=== PATIENT | female | born 2000 | race Caucasian/White ===

== ENCOUNTER 2025-02-14 13:59 | Emergency (ER) | payer OTHER ==
[~2025-02-14] VITALS: Ht 170.2 cm; Wt 68.0 kg
[2025-02-14 14:01] VITALS: BP 135/80; PULSE 92; RESP 18; TEMP 98.3; O2SAT 98
== END 2025-02-14 18:48 | disposition left against medical advice (07) ==
LOC: ER 13:59
DX: R51.9 Headache, unspecified (principal); R42 Dizziness and giddiness; Z53.21 Procedure and treatment not carried out due to patient leaving prior to being seen by health care provider

== ENCOUNTER 2025-02-15 06:03 | Emergency (ER) | payer OTHER ==
[~2025-02-15] VITALS: Ht 170.2 cm; Wt 68.8 kg
[2025-02-15 06:06] VITALS: TEMP 97.2
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
[2025-02-15 07:49] VITALS: BP 128/67; PULSE 70; RESP 17; O2SAT 99
[2025-02-15 07:53] LABS: URINE HCG NEGATIVE (NEG)
== END 2025-02-15 07:51 | disposition home or self-care (01) ==
LOC: ER 06:03
DX: S29.012A Strain of muscle and tendon of back wall of thorax, initial encounter (principal); V89.2XXA Person injured in unspecified motor-vehicle accident, traffic, initial encounter; Y93.89 Activity, other specified; Y92.89 Other specified places as the place of occurrence of the external cause; Y99.8 Other external cause status
CPT/HCPCS: 72074; 72100; 81025; 99284